=== PATIENT | male | born 1985 | race Hispanic/Latino ===

== ENCOUNTER 2024-05-18 10:26 | Emergency (ER) | payer OTHER ==
[2024-05-18] VITALS (14 sets, daily range): BP systolic 110–133; BP diastolic 73–88
[~2024-05-18] VITALS: Ht 172.7 cm; Wt 86.1 kg
[2024-05-18] MEDS ORDERED: METHOCARBAMOL 500 MG/TAB PO ONE (11:05)
[2024-05-18] MEDS ORDERED: oxyCODONE 5MG/ ACETAMINOPHEN 325MG TAB PO ONE (11:05)
[2024-05-18] MEDS ORDERED: PERCOCET 5/325M1 TAB PO (13:47)
[2024-05-18] MEDS ORDERED: IBUPROFEN600 MG PO (13:49)
[2024-05-18] MEDS ORDERED: ASPERCREME LIDOCA41 TD (13:49)
[2024-05-18] MEDS ORDERED: METHOCARBAMOL500 MG PO (13:49)
== END 2024-05-18 14:02 | disposition home or self-care (01) | DRG 605 ==
LOC: ED 10:26
DX: S70.12XA Contusion of left thigh, initial encounter (principal); S39.011A Strain of muscle, fascia and tendon of abdomen, initial encounter; M54.50 Low back pain, unspecified; V80.918A Animal-rider injured in other transport accident, initial encounter; Y99.0 Civilian activity done for income or pay
CPT/HCPCS: J1100